=== PATIENT | female | born 2000 | race Hispanic/Latino ===

== ENCOUNTER 2022-07-31 20:28 | Emergency (ER) | payer MEDICAID ==
[~2022-07-31] VITALS: Ht 154.9 cm; Wt 81.2 kg
[2022-07-31] MEDS ORDERED: FLUORESCEIN SODIUM 1 STRIP STRIP ONE (20:58)
[2022-07-31] MEDS ORDERED: TETRACAINE HCL 0.5% 4 ML OPHTH SOLN ONE (20:58)
[2022-07-31] MEDS: FLUORESCEIN SODIUM 1 STRIP STRIP OP SCH ×2 (22:00→22:07)
[2022-07-31] MEDS ORDERED: TETRACAINE HCL 0.5% 4 ML OPHTH SOLN OP SCH (22:00)
[2022-07-31 23:59] VITALS: BP 125/65
== END 2022-08-01 01:06 | disposition home or self-care (01) ==
LOC: EDH 20:28
DX: T15.92XA Foreign body on external eye, part unspecified, left eye, initial encounter (principal); Z98.890 Other specified postprocedural states; X58.XXXA Exposure to other specified factors, initial encounter